=== PATIENT | female | born 1955 | race Caucasian/White ===

== ENCOUNTER 2018-06-28 11:47 | Day surgery (SDC) | payer MEDICARE ==
[~2018-06-28] VITALS: Ht 172.7 cm; Wt 54.1 kg
[2018-06-28] MEDS ORDERED: SODIUM CHLORIDE 0.9% 1,000 ML IV SCH (12:42)
[2018-06-28 12:43] VITALS: BP 108/71
[2018-06-28] MEDS ORDERED: URSO300C27 PO (13:06)
[2018-06-28] MEDS ORDERED: SERT100T PO (13:06)
[2018-06-28] MEDS ORDERED: CHOL40002 PO (13:06)
[2018-06-28] MEDS ORDERED: HYDR-3241 PO (13:06)
[2018-06-28] MEDS ORDERED: ALPR0.5T10 SL (13:06)
[2018-06-28 13:09] LABS: BASOPHILS # (AUTO) 0.06 x10^3/uL (0-0.1); BASOPHILS % (AUTO) 1 % (0-1); EOSINOPHILS # (AUTO) 0.11 x10^3/uL (0-0.4); EOSINOPHILS % (AUTO) 1 % (1-7); LYMPHOCYTES # (AUTO) 3.01 x10^3/uL (1-3.4); LYMPHOCYTES % (AUTO) 37 % (22-44); MD NO; MEAN CORPUSCULAR HGB CONC 33.5 g/dL (32.4-35.8); MEAN CORPUSCULAR VOLUME 89.3 fL (80-100); MEAN PLATELET VOLUME 6.8 fL (7.4-10.4); MONOCYTES # (AUTO) 0.65 x10^3/uL (0.2-0.8); MONOCYTES % (AUTO) 8 % (2-9); NEUTROPHILS # (AUTO) 4.37 x10^3/uL (1.8-6.8); NEUTROPHILS % (AUTO) 53 % (42-75); PLATELET COUNT 442 x10^3/uL (130-400); RED BLOOD COUNT 4.44 x10^6/uL (3.82-5.3); RED CELL DISTRIBUTION WIDTH 15.7 % (9.6-15.2)
[2018-06-28] MEDS ORDERED: FENTANYL PF 100 MCG/2ML ONE (13:53)
[2018-06-28] MEDS ORDERED: NALOXONE 1 MG/ML, 2ML ONE (13:53)
[2018-06-28] MEDS ORDERED: FLUMAZENIL 0.1 MG/1 ML, 5ML ONE (13:53)
[2018-06-28] MEDS ORDERED: MIDAZOLAM 1 MG/ML, 5ML ONE (13:53)
[2018-06-28] MEDS ORDERED: LIDOCAINE-MPF 1%, 5ML ONE (14:16)
== END 2018-06-28 16:35 | disposition home or self-care (01) ==
LOC: OUT 11:47
PROVIDERS: ATTEND Internal Medicine
DX: C84.90 Mature T/NK-cell lymphomas, unspecified, unspecified site (principal); D47.3 Essential (hemorrhagic) thrombocythemia; F17.200 Nicotine dependence, unspecified, uncomplicated; Z79.899 Other long term (current) drug therapy
CPT/HCPCS: 36415; 38222; 77012; 85025; 85060; 85097; 88237; 88264; 88280; 88305; 88311; 88313; 99156; 99157; J2250; J3010; J2310